=== PATIENT | male | born 1985 | race Caucasian/White ===

== ENCOUNTER 2016-10-24 23:07 | Emergency (ER) | payer OTHER ==
[2016-10-24 23:33] VITALS: BP 149/79; PULSE 86; RESP 18; TEMP 98; O2SAT 100
--- NOTE | 2016-10-24 23:48 | ED PDOC ---
HPI: Skin/Bite Injury Time Seen by Provider: 10/24/16 23:42 Chief Complaint (Nursing): Abnormal Skin Integrity Chief Complaint (Provider): abscess History Per: Patient Additional Complaint(s): 31 year old male presents to emergency department with a painful abscess to posterior neck 2 days. Patient states for several years he has had cyst to same area but over past few days he has noticed increased redness and pain and swelling. Patient denies any active drainage, he denies fever, chills or body aches. Patient did not take any medication for pain relief. He denies any trauma or injury. Past Medical History Reviewed: Historical Data, Nursing Documentation, Vital Signs Vital Signs: Last Vital Signs Temp 98 F 10/24/16 23:30 Pulse 86 10/24/16 23:30 Resp 18 10/24/16 23:30 BP 149/79 10/24/16 23:30 Pulse Ox 100 10/24/16 23:30 - Medical History PMH: No Chronic Diseases - Family History Family History: States: No Known Family Hx - Living Arrangements Living Arrangements: With Family - Social History Current smoker - smoking cessation education provided: Yes Alcohol: Social Drugs: Denies - Home Medications Home Medications: Ambulatory Orders Medication Instructions Recorded Clindamycin [Cleocin] 300 mg PO TID #21 cap 10/24/16 Ibuprofen [Motrin] 600 mg PO Q6 PRN #15 tab 10/24/16 traMADol [Ultram] 50 mg PO TID PRN #8 tab 10/24/16 - Allergies Allergies/Adverse Reactions: Allergies Allergy/AdvReac Type Severity Reaction Status Date / Time tz Allergy RASH Uncoded 10/24/16 23:33 Review of Systems ROS Statement: Except As Marked, All Systems Reviewed And Found Negative Constitutional: Negative for: Fever, Chills, Malaise Gastrointestinal: Negative for: Nausea, Vomiting Skin: Positive for: Other (abscess to back of neck) Physical Exam - Reviewed Nursing Documentation Reviewed: Yes Vital Signs Reviewed: Yes - Physical Exam Appears: Positive for: Well, Non-toxic, No Acute Distress Skin: Negative for: Rash Eye Exam: Positive for: Normal appearance Neck: Negative for: Normal (There is a 3 cm indurated, erythematous abscess noted to posterior neck with no central pointing or fluctuance, no erythematous streaking, mildly tender to palpation) Cardiovascular/Chest: Positive for: Regular Rate, Rhythm Respiratory: Positive for: Normal Breath Sounds Neurologic/Psych: Positive for: Alert, Oriented - ECG O2 Sat by Pulse Oximetry: 100 Pulse Ox Interpretation: Normal Medical Decision Making Medical Decision Making: Impression: Indurated abscess Lee: PO motrin and tramadol Clindamycin 300 mg PO Patient has indurated abscess, no fluctuance noted, no central pointing. There is no indication at this time for incision and drainage. Patient was instructed to apply warm compresses to affected areas off as possible and was given prescriptions for clindamycin, Motrin and tramadol. He was instructed to return in 1-2 days for wound recheck or sooner if acutely worse. Disposition - Clinical Impression Clinical Impression: Abscess - Patient ED Disposition Is Patient to be Admitted: No Counseled Patient/Family Regarding: Diagnosis, Need For Followup, Rx Given - Disposition Referrals: [facility] [Outside] Disposition: Routine/Home Disposition Time: 23:42 Condition: STABLE Additional Instructions: Apply warm compresses with Epsom salts to affected areas off with possible. Take prescription meds as directed. Return in 2 days for wound recheck. Prescriptions: Clindamycin [Cleocin] 300 mg PO TID #21 cap Ibuprofen [Motrin] 600 mg PO Q6 PRN #15 tab PRN Reason: Pain, Moderate (4-7) traMADol [Ultram] 50 mg PO TID PRN #8 tab PRN Reason: Pain, Moderate (4-7) Instructions: Abscess (ED) Forms: [employer] (Syrian)
== END 2016-10-25 00:16 | disposition home or self-care (01) ==
LOC: H.ER 23:07
DX: L02.11 Cutaneous abscess of neck (principal)

== ENCOUNTER 2016-10-27 17:50 | Emergency (ER) | payer OTHER ==
[2016-10-27 17:57] VITALS: PULSE 81; RESP 17; TEMP 98.2; O2SAT 100
--- NOTE | 2016-10-27 18:10 | ED PDOC ---
HPI: Wound Care - HPI Time Seen by Provider: 10/27/16 17:55 Chief Complaint (Nursing): Wound Check Chief Complaint (Provider): Wound Check History Per: Patient Exam Limitations: no limitations Onset/Duration Of Symptoms: Days (x3) Current Symptoms Are (Timing): Still Present Additional Complaint(s): Jess Spann is a 31 year old male who presents to the emergency department for a wound re-evaluation of posterior neck abscess associated with pain since last visit in ED on 10/24/16. Denied fever, chills or increased swelling. Patient stated he has been taking prescribed Cleocin, warm compresses and Ultram with no relief of symptoms. PMD: Past Medical History Reviewed: Historical Data, Nursing Documentation, Vital Signs Vital Signs: Last Vital Signs Temp 98.2 F 10/27/16 17:55 Pulse 81 10/27/16 17:55 Resp 17 10/27/16 17:55 BP Pulse Ox 100 10/27/16 17:55 - Medical History PMH: No Chronic Diseases - Surgical History Surgical History: No Surg Hx - Family History Family History: States: Unknown Family Hx - Home Medications Home Medications: Ambulatory Orders Medication Instructions Recorded Clindamycin [Cleocin] 300 mg PO TID #21 cap 10/24/16 Ibuprofen [Motrin] 600 mg PO Q6 PRN #15 tab 10/24/16 traMADol [Ultram] 50 mg PO TID PRN #8 tab 10/24/16 - Allergies Allergies/Adverse Reactions: Allergies Allergy/AdvReac Type Severity Reaction Status Date / Time tz Allergy RASH Uncoded 10/24/16 23:33 Review of Systems ROS Statement: Except As Marked, All Systems Reviewed And Found Negative Constitutional: Negative for: Fever, Chills Musculoskeletal: Positive for: Neck Pain (posterior abscess). Negative for: Other (increased swelling) Physical Exam - Reviewed Nursing Documentation Reviewed: Yes Vital Signs Reviewed: Yes - Physical Exam Appears: Positive for: Well, Non-toxic, No Acute Distress Head Exam: Positive for: ATRAUMATIC, NORMAL INSPECTION, NORMOCEPHALIC Skin: Negative for: Normal Color (3cm in diameter fluctuant abscess) Eye Exam: Positive for: Normal appearance ENT: Positive for: Normal ENT Inspection Neck: Positive for: Supple. Negative for: Normal, Painless ROM, Pain On Movement Of Neck Respiratory: Negative for: Accessory Muscle Use, Respiratory Distress Back: Positive for: Normal Inspection Extremity: Positive for: Normal ROM Neurologic/Psych: Positive for: Alert, Oriented - ECG O2 Sat by Pulse Oximetry: 100 (RA) Pulse Ox Interpretation: Normal - Progress Condition: Improved Medical Decision Making Medical Decision Making: Initial Impression: Wound check Initial Plan: * Incision and drainage * Lido/epi 5ml INJ Time: 1852 --Began incision and drainage of posterior neck abscess. See procedure note. Scribe Attestation: Documented by Minerva Astorga, acting as a scribe for Mulu Negro PA-C. Provider Scribe Attestation: All medical record entries made by the Scribe were at my direction and personally dictated by me. I have reviewed the chart and agree that the record accurately reflects my personal performance of the history, physical exam, medical decision making, and the department course for this patient. I have also personally directed, reviewed, and agree with the discharge instructions and disposition. Disposition - Clinical Impression Clinical Impression: Abscess - Patient ED Disposition Is Patient to be Admitted: No Counseled Patient/Family Regarding: Diagnosis, Need For Followup - Disposition Disposition: Routine/Home Disposition Time: 19:05 Condition: STABLE Additional Instructions: Warm dry compresses. Do not get dressing wet for 2 days. Packing removal (white piece) removed in 2 days. Continue antibiotics. Instructions: Abscess (ED) Forms: [employer] (Yakut) - Incision & Drainage Of Abscess Anesthesia: Lidocaine 1%, With Epi Prep Used: Sterile Water Procedure: Incised W/Scalpel Blade#: (11), Drained Pus (0.5cm incision with 1cc purulent drainage), Irrigated Cavity W/Saline, Packed W/Gauze
[2016-10-27] MEDS ORDERED: Lidocaine 1% w Epi 1:100,000 Inj IJ STA (18:43)
[2016-10-27] MEDS ORDERED: Lidocaine 2% w Epi 1:100,000 Inj IJ ONE (18:52)
== END 2016-10-27 19:43 | disposition home or self-care (01) ==
LOC: H.ER 17:50
DX: L02.11 Cutaneous abscess of neck (principal)